=== PATIENT | female | born 1935 | race Caucasian/White ===

== ENCOUNTER → 2018-05-05 | Day surgery (SDC) | payer MEDICARE ==
[2018-05-01 10:08] LABS: BASOPHILS # (AUTO) 0.1 (0.0-0.1); BASOPHILS % 1.2 % (0.0-1.0); EOSINOPHILS # (AUTO) 0.2 (0.0-0.4); EOSINOPHILS % 2.7 % (0.0-6.0); LYMPHOCYTES # (AUTO) 2.1 (1.0-3.2); LYMPHOCYTES % 28.2 % (18.0-39.1); MEAN CORPUSCULAR HEMOGLOBIN 28.3 pg (28-32); MEAN CORPUSCULAR HGB CONC 32.5 g/dL (31-35); MONOCYTES # (AUTO) 0.7 (0.2-0.8); MONOCYTES % 9.4 % (4.4-11.3); NEUTROPHILS # (AUTO) 4.4 (2.1-6.9); PLATELET COUNT 299 x10e3/uL (140-360); RED CELL DISTRIBUTION WIDTH 14.6 % (11.7-14.4)
[~2018-05-05] MED LIST: FENTANYL CITRATE/PF 100MCG/2 ML INJ ONE; LIPITOR PO; LYRICA300 MG PO; METFORMIN PO; PROPOFOL IV EMULSION 10 MG/ML 50 ML VIAL ONE; SIMVASTATIN40 MG PO; TYLENOL325 MG PO; VITAMIN B12 PO; [UNRECOGNIZED DRUG - OTHER] PO
[2018-05-05 15:11] VITALS: BP 137/88
--- NOTE | 2018-05-05 16:14 | Operative Report ---
DATE OF PROCEDURE: May 05, 2018 REFERRING PHYSICIAN: Dr. Emy Davies. PROCEDURE PERFORMED: Esophagogastroduodenoscopy with biopsy and colonoscopy with polypectomy note. INDICATIONS FOR ESOPHAGOGASTRODUODENOSCOPY: Dysphagia. INDICATIONS FOR COLONOSCOPY: Colorectal cancer surveillance, personal history of colon polyps, change in bowel habits. MEDICATION: Patient was done under MAC. Please see anesthesiologist's note. PROCEDURE: With the patient in the left lateral decubitus position, flexible fiberoptic Olympus gastroscope was introduced into the esophagus under direct visualization without any difficulty. There was some patchy erythema noted in distal esophagus. A mild stricture was noted at the GE junction that was dilated to size 52-Welsh Vargas. The scope was then advanced with ease into the stomach and there was some patchy erythema noted in the body and the antrum. Approximately 5 mm submucosal nodule was noted in the mid body posterior wall and that was biopsied. Pylorus appeared to be of normal contour and shape. Was intubated with ease and the scope was advanced all the way to the 2nd portion of the duodenum. The scope was then withdrawn slowly. Mucosa overlying the proximal 2nd portion and duodenal bulb was grossly unremarkable. The scope was then withdrawn back into the stomach and retroflexed and mucosa overlying the fundus and cardia appeared to be within normal limits. The scope was then straightened out. It was subsequently withdrawn. Patient tolerated the procedure well. IMPRESSION: 1. Distal esophagitis, mild. 2. 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 3. Gastritis, mild. 4. Approximately 5 mm submucosal nodule mid body posterior wall biopsied. PLAN: Follow up histology. Initiate Protonix 40 mg 1 p.o. q.a.m. a.c. PROCEDURE: Patient was then turned around and after adequate lubrication of the anal canal a flexible fiberoptic Olympus colonoscope was inserted into the rectum with ease and advanced all the way to the cecum. It was then withdrawn slowly. Mucosa overlying the cecum, ascending colon appeared to be within normal limits. One polyp was hot biopsied from the transverse colon. Descending appeared to be within normal limits. Diverticular disease was noted in the sigmoid. The rectum appeared to be within normal limits. The scope was then retroflexed into the distal rectum and small internal hemorrhoids were noted, none of which was actively bleeding. The scope was then straightened out and it was subsequently withdrawn. Patient tolerated the procedure well. IMPRESSION 1. Transverse colon polyp hot biopsied. 2. Diverticulosis. 3. Internal hemorrhoids, none actively bleeding. PLAN: Followup histology. Initiate high-fiber, low-fat diet. Initiate high fiber supplement. No followup colonoscopy is needed. Job#: [id number] cc:EMY DAVIES MD
== END | disposition home or self-care (01) ==
LOC: OR 11:55
PROVIDERS: ATTEND Internal Medicine Gastroenterology
DX: K59.00 Constipation, unspecified (principal); D12.3 Benign neoplasm of transverse colon; K29.70 Gastritis, unspecified, without bleeding; K22.2 Esophageal obstruction; K31.89 Other diseases of stomach and duodenum; K20.9 Esophagitis, unspecified; K57.30 Diverticulosis of large intestine without perforation or abscess without bleeding; K64.8 Other hemorrhoids; E78.00 Pure hypercholesterolemia, unspecified; E11.9 Type 2 diabetes mellitus without complications; H40.9 Unspecified glaucoma; H26.9 Unspecified cataract; Z01.810 Encounter for preprocedural cardiovascular examination; Z01.812 Encounter for preprocedural laboratory examination; Z79.84 Long term (current) use of oral hypoglycemic drugs; Z86.19 Personal history of other infectious and parasitic diseases
CPT/HCPCS: 36415; 43239; 43450; 45378; 45384; 82948; 85025; 93005

== ENCOUNTER → 2020-09-24 | Day surgery (SDC) | payer MEDICARE ==
[2020-09-20 10:07] LABS: BASOPHILS # (AUTO) 0.1 (0.0-0.1); EOSINOPHILS # (AUTO) 0.1 (0.0-0.4); EOSINOPHILS % 1.1 % (0.0-6.0); HEMATOCRIT 37.3 % (34.2-44.1); HEMOGLOBIN 11.1 g/dL (12.0-16.0); LYMPHOCYTES # (AUTO) 1.5 (1.0-3.2); LYMPHOCYTES % 16.3 % (18.0-39.1); MEAN CORPUSCULAR HEMOGLOBIN 23.6 pg (28-32); MEAN CORPUSCULAR HGB CONC 29.8 g/dL (31-35); MEAN CORPUSCULAR VOLUME 79.4 fL (81-99); MONOCYTES # (AUTO) 0.6 (0.2-0.8); NEUTROPHILS # (AUTO) 6.6 (2.1-6.9); NEUTROPHILS % 74.4 % (38.7-80.0); PLATELET COUNT 336 x10e3/uL (140-360); RED CELL DISTRIBUTION WIDTH 26.5 % (11.7-14.4)
[~2020-09-24] MED LIST changes: +FAMOTIDINE20 MG PO; -FENTANYL CITRATE/PF 100MCG/2 ML INJ ONE; +LIPITOR20 MG PO; +METFORMIN HCL500 MG PO; +METOPROLOL SUCC25 MG PO; +PRIMIDONE PO; -PROPOFOL IV EMULSION 10 MG/ML 50 ML VIAL ONE; +SIMETHICONE 40 MG/0.6 ML BTL ONE; +XARELTO10 MG PO
[2020-09-24 09:30] VITALS: BP 142/76
== END | disposition home or self-care (01) ==
LOC: OR 06:09
PROVIDERS: ATTEND Internal Medicine Gastroenterology
DX: D64.89 Other specified anemias (principal); Z86.010 Personal history of colon polyps; Q27.33 Arteriovenous malformation of digestive system vessel; K29.60 Other gastritis without bleeding; K22.2 Esophageal obstruction; K25.9 Gastric ulcer, unspecified as acute or chronic, without hemorrhage or perforation; K21.9 Gastro-esophageal reflux disease without esophagitis; K20.90 Esophagitis, unspecified without bleeding; K44.9 Diaphragmatic hernia without obstruction or gangrene; K57.30 Diverticulosis of large intestine without perforation or abscess without bleeding; K64.8 Other hemorrhoids; I10 Essential (primary) hypertension; E11.9 Type 2 diabetes mellitus without complications; H40.9 Unspecified glaucoma; E78.00 Pure hypercholesterolemia, unspecified; H26.9 Unspecified cataract; F41.9 Anxiety disorder, unspecified; Z01.810 Encounter for preprocedural cardiovascular examination; Z01.812 Encounter for preprocedural laboratory examination; Z20.822 Contact with and (suspected) exposure to COVID-19; Z79.02 Long term (current) use of antithrombotics/antiplatelets; Z79.84 Long term (current) use of oral hypoglycemic drugs; Z68.27 Body mass index [BMI] 27.0-27.9, adult; Z86.711 Personal history of pulmonary embolism; Z86.19 Personal history of other infectious and parasitic diseases
CPT/HCPCS: 36415 ×2; 43239; 43450; 45388; 82948; 85025; 93005; U0002; 45378

== ENCOUNTER → 2020-12-16 | Outpatient (CLI) | payer MEDICARE ==
[~2020-12-16] MED LIST changes: -SIMETHICONE 40 MG/0.6 ML BTL ONE
== END ==
LOC: CT 08:45
PROVIDERS: ATTEND Internal Medicine Hematology & Oncology
DX: I26.99 Other pulmonary embolism without acute cor pulmonale (principal); D50.9 Iron deficiency anemia, unspecified; R53.83 Other fatigue
CPT/HCPCS: 74176

== ENCOUNTER 2021-11-15 16:04 | Emergency (ER) | payer MEDICARE ==
[~2021-11-15] VITALS: Ht 162.6 cm; Wt 59.0 kg
[2021-11-15] MEDS ORDERED: MINERAL OIL 132 ML BTL PR ONE (17:45)
[2021-11-15] MEDS ORDERED: LACTULOSE SYRUP 20 GM/30 ML UDC PO ONE (17:45)
== END 2021-11-15 18:24 | disposition home or self-care (01) ==
LOC: ER 16:19
DX: K59.00 Constipation, unspecified (principal); I10 Essential (primary) hypertension; F03.90 Unspecified dementia, unspecified severity, without behavioral disturbance, psychotic disturbance, mood disturbance, and anxiety; E78.5 Hyperlipidemia, unspecified; F41.9 Anxiety disorder, unspecified
CPT/HCPCS: 74018; 99283